=== PATIENT | male | born 1935 | race Caucasian/White ===

== ENCOUNTER 2016-09-14 08:59 | Outpatient (CLI) | payer MEDICARE, OTHER | END 2016-09-14 09:00 | disposition home or self-care (01) | LOC: SC 08:59 | PROVIDERS: ATTEND Internal Medicine Pulmonary Disease | DX: G47.33 Obstructive sleep apnea (adult) (pediatric) (principal) | CPT/HCPCS: 99213; G0463; 99212 ==

== ENCOUNTER 2016-10-30 08:45 | Outpatient (CLI) | payer MEDICARE, OTHER | END 2016-10-30 08:46 | disposition home or self-care (01) | LOC: SC 08:45 | PROVIDERS: ATTEND Internal Medicine Pulmonary Disease | DX: G47.33 Obstructive sleep apnea (adult) (pediatric) (principal) | CPT/HCPCS: 99213; G0463; 99212 ==

== ENCOUNTER 2018-08-06 10:01 | Outpatient (CLI) | payer MEDICARE, OTHER | END 2018-08-06 10:02 | disposition home or self-care (01) | LOC: SC 10:01 | PROVIDERS: ATTEND Internal Medicine Pulmonary Disease | DX: G47.33 Obstructive sleep apnea (adult) (pediatric) (principal) | CPT/HCPCS: 99213; G0463; 99212 ==

== ENCOUNTER 2019-08-14 13:33 | Outpatient (CLI) | payer MEDICARE, OTHER ==
--- NOTE | 2019-08-14 11:21 | SLEEP CARE CONSULTATION ---
Information from patient questionnaire entered by Katty Franco. I have reviewed and concur with the information entered by Katty Franco. This document represents the service I personally performed and the decisions made by me, Binta Barakat, RN, MSN, SPREADER. History of Present Illness Service Date and Time: 08/14/2019 1100 Previous diagnosis: Moderate, Obstructive Sleep Apnea-Hypopnea Syndrome AHI: 22.7 Reason for follow up: annual Equipment type: BiPAP Equipment obtained from: [employer] (getting supplies) Mask style: Full face (Dreamwear) Backup mask available: Yes (old mask) Last cushion change: 6-8 weeks CPAP Compliance Data - Data Reviewed with Patient Average duration of nightly device use: 9h 47m Compliance rate %: 55 Current pressure setting (cmH2O): 16/12 Humidity settin Heated hose settin Average residual AHI: 2.5 Average large leak: 15m 7s Subjective Missed days of use due to: reports: other (use of other BiPAP kept on boat - Patient "uses BiPAP nightly") Patient concerns: denies: aerophagia, mask discomfort, air blowing in eyes, mask leak noise, condensation in mask/hose, nasal congestion, dry mouth, nose, throat, epistaxis Observed to snore while using device: No Current pressure setting perceived as: comfortable On therapy, patient: reports: sleeping better, awakening more refreshed, being more awake and alert during the day, more rested overall. denies: drowsiness while driving, other Initial [place] Sleepiness Scale score: 2 Physical Exam Height: 6 ft 3 in Weight: 260 lb Body Mass Index: 32.5 BMI Classification: Obese Impression and Plan 1. Obstructive Sleep Apnea-Hypopnea Syndrome, moderate, with good treatment compliance and good apnea control the last few months of use. On BiPAP therapy, the patient has better sleep quality and is more rested overall. No data time of this BiPAP is due to use of another BiPAP he has that he uses while on his boat and no data is available at this visit. I will have my staff contact him to see if there is a way to retrieve data. He is pleased with service of new DME and getting supplies as needed. Currently weight is stable per patient. He is advised how significant weight change can affect his BiPAP pressure needs and symptoms to contact office. Patient's apnea severity and rationale for treatment to reduce apnea, improve sleep quality and reduce hypertension, cardiovascular and cerebrovascular events was reviewed. * Continue BiPAP pressure at 16/12 cmH2O * Notify me if snoring with mask or feeling that the pressure is too much or too little * Obtain data from extra BiPAP * Call this office if any problems using CPAP * Return for follow up in 1 year , or sooner if concerns arise Visit Type: Telehealth Phone (to reduce risk of Covid 19 exposure) Patient Location: Home Location of Provider: Home Patient agrees and consents to this telehealth visit type: Yes Patient agrees to have their insurance billed: Yes Time Spent with Patient (minutes): 10 Provider Statement: I spent 100% of the Telehealth Phone Call with the patient with greater than 50% spent counseling the patient and coordination of care.
== END 2019-08-14 13:34 | disposition home or self-care (01) ==
LOC: SC 13:33
PROVIDERS: ATTEND Nurse Practitioner Family
DX: G47.33 Obstructive sleep apnea (adult) (pediatric) (principal); E66.9 Obesity, unspecified; Z68.32 Body mass index [BMI] 32.0-32.9, adult

== ENCOUNTER 2020-10-25 08:49 | Outpatient (CLI) | payer MEDICARE, OTHER ==
--- NOTE | 2020-10-25 09:37 | SLEEP CARE CONSULTATION ---
Information from patient questionnaire entered by Jacquie Castañeda. I have reviewed and concur with the information entered by Jacquie Castañeda. This document represents the service I personally performed and the decisions made by me, Eduardo Will MD, [facility]. History of Present Illness Service Date and Time: 10/25/2020 0849 Previous diagnosis: Moderate, Obstructive Sleep Apnea-Hypopnea Syndrome AHI: 22.7 Reason for follow up: annual (Last seen 08/2019) Equipment type: BiPAP Mask style: Full face (Dreamwear) Year and Where: 2010 formerly [facility] HPI additional information: HPI: Mr. Barrios was diagnosed to have moderate obstructive sleep apnea- hypopnea syndrome and returns today for annual follow up of BiPAP therapy. The patient purchased the device from [employer] but is getting supplies from [employer]. He wears a ResMed AirTouch F-20 full face mask. He continues to use the device nightly and all through the night. The compliance report shows that he uses the device 179 nights out of the past 180 nights, averaging 9.2 hours a night. He complains of no particular problem with the device such as soreness on the face, dry nose, epistaxis, nasal congestion or headache. He thinks that the pressure of 16/12 cmH2O is comfortable. On the BiPAP therapy he notices improvement in his sleep quality, and that he wakes up feeling fresher in the morning and more awake/alert during the day. [place] Sleepiness Scale score is 0. The average residual AHI is 1.4; and large leak, 17 minutes a night. CPAP Compliance Data - Data Reviewed with Patient Current pressure setting (cmH2O): 16/12 Humidity settin Heated hose settin Subjective Initial [place] Sleepiness Scale score: 2 (in 2010) Allergies and Home Medications Drug allergies reviewed: Yes Home medication list reviewed: Yes Review of Systems Review of systems same as previous: Yes Physical Exam Height: 6 ft 3 in Weight: 290 lb Body Mass Index: 36.2 BMI Classification: Obese Impression and Plan IMPRESSION: 1. Obstructive Sleep Apnea-Hypopnea Syndrome, moderate, with the patient continuing to do well on nasal BiPAP therapy. He has excellent compliance and significant clinical benefits. The current pressure appears effective and comfortable. Overall, he is very satisfied with treatment and plans to continue with it long-term. No adjustment is necessary today. Because the BiPAP is now older than the useful life of 5 years and is being recalled, I will order the patient a new one and set it at the same pressure of 16/12 cmH2O. PLAN: 1. Continue with BiPAP set at 16/12 cm H2O. 2. Prescription made a new BiPAP. 3. Return for follow up after one month of using the new BiPAP. Counseling Topics: Weight control Visit Type: In Office Time Spent with Patient (minutes): 15 Provider Statement: I spent 100% of the Face to Face Visit with the patient with greater than 50% spent counseling the patient and coordination of care.
== END 2020-10-25 08:50 | disposition home or self-care (01) ==
LOC: SC 08:49
PROVIDERS: ATTEND Internal Medicine Pulmonary Disease
DX: G47.33 Obstructive sleep apnea (adult) (pediatric) (principal); E66.9 Obesity, unspecified; Z68.36 Body mass index [BMI] 36.0-36.9, adult
CPT/HCPCS: 99212; G0463

== ENCOUNTER 2020-12-02 13:45 | Outpatient (CLI) | payer MEDICARE, OTHER | END 2020-12-02 13:46 | disposition home or self-care (01) | LOC: COV 13:45 | PROVIDERS: ATTEND Dermatology MOHS-Micrographic Surgery | DX: Z01.812 Encounter for preprocedural laboratory examination (principal); Z20.822 Contact with and (suspected) exposure to COVID-19 ==

== ENCOUNTER 2022-10-11 16:15 | Outpatient (CLI) | payer MEDICARE, OTHER ==
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
[2022-10-11 10:11] VITALS: BP 122/68
== END 2022-10-11 16:16 | disposition home or self-care (01) ==
LOC: SC 16:15
PROVIDERS: ATTEND Nurse Practitioner Family
DX: G47.33 Obstructive sleep apnea (adult) (pediatric) (principal); E66.9 Obesity, unspecified; Z68.34 Body mass index [BMI] 34.0-34.9, adult